=== PATIENT | female | born 1975 | race Caucasian/White ===

== ENCOUNTER 2022-12-27 17:40 | Emergency (ER) | payer OTHER, SELFPAY ==
--- NOTE | ~2022-12-27 | CT_ITS ---
EXAMINATION: CT HEAD WITHOUT CONTRAST CLINICAL INFORMATION: Headache. COMPARISON: None available. TECHNIQUE: Contiguous axial imaging was performed from the skull base to vertex without intravenous administration of contrast. This CT examination was performed using dose optimization techniques as appropriate, variously including the following: *Automated exposure control *Adjustment of mA and/or kV according to patient size (this includes techniques or standardized protocols for targeted exams where dose is matched to indication/reason for exam; i.e. extremities or head) *Use of iterative reconstruction technique DLP: 711. mGy-cm FINDINGS: The lateral, third and fourth ventricles are normally outlined. The cortical sulci and basal cisterns are normally outlined as well. There is no acute territorial defect, hemorrhage or midline shift. The extra-axial spaces are unremarkable. Calvarium: Intact. Maxillofacial sinuses and mastoids: There is a lobular inferior right maxillary sinus opacity measuring 2 cm likely a cyst or polyp. The remaining visualized maxillofacial sinuses and mastoids are clear. CT/CT head/brain wo IV con IMPRESSION: No acute intracranial pathology.
[2022-12-27 18:19] VITALS: BP 144/86; PULSE 76; RESP 18; TEMP 36.6; O2SAT 97; BMI 31.5
[2022-12-27 18:39] LABS: MANUAL DIFF FLAG NO
[2022-12-27 18:46] LABS: Basophils Percent Auto 0.3 % (0-2); Eosinophils Absolute Auto 0.2 X10*3/uL (0.0-0.4); Eosinophils Percent Auto 1.8 % (0-4); Hematocrit 40.5 % (37.0-47.0); Hemoglobin 12.9 g/dl (12.0-16.0); Imm Gran Abs Auto 0.03 X10*3/uL (0.00-0.03); Imm Gran Pct Auto 0.3 % (0.0-0.4); Lymphocytes Absolute Auto 3.2 X10*3/uL (1.2-4.9); Lymphocytes Percent Auto 37.2 % (20-40); Mean Corpuscular HGB Conc 31.9 g/dl (31.0-35.0); Mean Corpuscular Hemoglobin 28.1 pg (27.0-33.0); Mean Corpuscular Volume 88.2 fL (80.0-98.0); Mean Platelet Volume 9.2 fL (9.4-12.3); Monocytes Absolute Auto 0.6 X10*3/uL (0.1-1.2); Monocytes Percent Auto 7.1 % (2-11); Neutrophils Absolute Auto 4.6 x10*3/uL (2.0-8.3); Neutrophils Percent Auto 53.3 % (45-73); Platelet Count 274 X10*3/uL (160-400); Red Blood Count 4.59 X10*6/uL (4.20-5.50); White Blood Count 8.7 X10*3/uL (4.8-10.8)
[2022-12-27 18:56] LABS: COVID-19 Test Negative (Negative); IDNOW Serial# 55D5AD1C; IDNOW Serial# 9DB6401D; Influenza A Negative (Negative); Influenza B2 Negative (Negative)
--- NOTE | 2022-12-27 18:58 | ED.GENADULT ---
HPI - General Adult General Chief complaint: General Medical Stated complaint: High blood pressure/Migraine Time Seen by Provider: 12/27/22 22:01 Source: patient Mode of arrival: ambulatory Limitations: no limitations History of Present Illness HPI narrative: 47 yo female PMH of depression and headaches but no formal dx of migraines - usually triggered by a smell notes 1 week she developed gradual onset R sided stabbing headache that has worsened but then did improve for a couple of days until it worsened again today. No fevers, no trauma, no neck manipulation, sinus issues. She has never had one last this long before. No medications at home for headaches daily. No prior imaging. MD complaint: headache Onset (ago): week(s) (1) Location: head Radiation: non-radiation Severity: severe Quality: stabbing Pain Consistency: constant Relieving factors: none Exacerbating factors: other (light noise) Associated symptoms: headaches and nausea/vomiting Treatments prior to arrival: none Related Data Allergies Allergy/AdvReac Type Severity Reaction Status Date / Time amoxicillin Allergy Rash Verified 12/27/22 18:18 clavulanic acid Allergy Rash Verified 12/27/22 18:18 [From Augmentin] morphine Allergy Agitated Verified 12/27/22 18:18 Review of Systems Review of Systems: Constitutional : No Fever, No Chills, No Fatigue ENT/Mouth : No sore throat, No Rhinorrhea Eyes: pos Eye Pain, No Swelling, No Redness Cardiovascular : No Chest Pain, No SOB, No Dyspnea on Exertion Respiratory : No Cough, No Sputum Gastrointestinal : pos Nausea, No Vomiting, No Diarrhea, No abdominal Pain Genitourinary : No Dysuria, No Urinary Frequency, No Hematuria, Musculoskeletal : No joint pain, No Myalgias, No Joint Swelling Skin : No Skin Lesions, No rash Neuro : No Weakness, No Numbness, No Dizziness, positive Headache Psych : No Anxiety/Panic, No Depression Heme/Lymph: No Bruising, No Bleeding,No Lymphadenopathy Endocrine : No Polyuria, No Polydipsia All other systems reviewed and are negative [facility] Past Medical History Attestation statement: The following information was validated with the patient. Medical History Depression Social History Social History (Updated 12/27/22 @ 22:21 by Tina Nazario DO) Patient Tobacco Use Status: Never used Tobacco Advance Directives: No Advance Directives Information Provided: Yes Physical Exam ED Vital Signs: Vital Signs - 24 hr 12/27/22 18:19 12/27/22 22:01 Temperature 97.9 F 97.9 F Pulse Rate 76 62 Respiratory Rate 18 18 Blood Pressure 144/86 H 155/75 H Pulse Oximetry 97 100 Oxygen Delivery Method Room Air Room Air BMI result Body Mass Index 31.5 Appearance: Alert. Oriented X3. No acute distress. Eyes: Pupils equal, round and reactive to light. photophobia ENT: Pharynx normal. Neck: Normal inspection. Neck supple. no meningeal signs CVS: Normal heart rate and rhythm. Pulses normal. Respiratory: No respiratory distress. Breath sounds normal. Abdomen: Soft and nontender. Skin: Skin warm and dry. Normal skin color. Normal skin turgor. Extremities: No lower extremity edema. No calf ttp Neuro: Oriented X 3. No motor deficit. No sensory deficit. Course Course Course Narrative: feels much better can be DC at this time Medications Administered Generic Name Dose Route Start Last Admin Trade Name Fredebbi PRN Reason Stop Dose Admin Magnesium Sulfate 2 gm in 50 mls @ 25 mls/hr 12/27/22 22:09 12/27/22 22:34 Magnesium Sulfate/H2o IV 12/28/22 00:08 25 mls/hr ONCE ONE Administration Discontinued Medications Generic Name Dose Route Start Last Admin Trade Name Freq PRN Reason Stop Dose Admin Dexamethasone Sodium Phosphate 6 mg 12/27/22 22:09 12/27/22 22:26 Dexamethasone Sod Phosphate 4 Mg/Ml Vial IVPUSH 12/27/22 22:10 6 mg ONCE ONE Administration Diphenhydramine HCl 25 mg 12/27/22 22:09 12/27/22 22:25 Diphenhydramine Hcl 50 Mg/Ml Vial IVPUSH 12/27/22 22:10 25 mg ONCE ONE Administration Sodium Chloride 1,000 mls @ 999 mls/hr 12/27/22 22:15 12/27/22 22:34 Ns IV 12/27/22 23:15 999 mls/hr .Q1H1M EDI Administration Ketorolac Tromethamine 15 mg 12/27/22 22:09 12/27/22 22:27 Ketorolac Tromethamine 15 Mg/Ml Vial IVPUSH 12/27/22 22:10 15 mg ONCE ONE Administration Metoclopramide HCl 10 mg 12/27/22 22:09 12/27/22 22:26 Metoclopramide Hcl 10 Mg/2 Ml Vial IVPUSH 12/27/22 22:10 10 mg ONCE ONE Administration Medical Decision Making Medical Decision Making [facility] Narrative: 47 yo female with PMH of depression here with c/o gradual onset headache that has worsened then improved now worsened again no fevers, normal neuro exam, no meningeal signs. She has no formal dx of migraines. Given onset unlikely to be SAH at this time I am going to obtain basic labs, CT head for mass, start on IV magnesium/dexa given 1 week of symptoms and migraine cocktail. Her lack of fevers and meningeal signs make [employer] Infection unlikely and onset and timing make SAH unlikely. ESR added in case of GCA arteritis. Differential Diagnosis Differential Diagnoses: The differential diagnosis associated with the presentation includes tension, migraine, mass, acute headache, sinusitis Admission/Observation Consideration of admission/observation: Escalation of care including admission/observation considered headache improved stable for DC Lab Data [facility] Lab Attestation statement: I reviewed the patient's lab results. 12/27/22 18:34 12/27/22 18:34 Labs: Lab Results 12/27/22 Range/Units 18:34 WBC 8.7 (4.8-10.8) X10*3/uL RBC 4.59 (4.20-5.50) X10*6/uL Hgb 12.9 (12.0-16.0) g/dl Hct 40.5 (37.0-47.0) % MCV 88.2 (80.0-98.0) fL MCH 28.1 (27.0-33.0) pg MCHC 31.9 (31.0-35.0) g/dl RDW 13.0 (11.0-16.0) % Plt Count 274 (160-400) X10*3/uL MPV 9.2 L (9.4-12.3) fL Immature Gran % (Auto) 0.3 (0.0-0.4) % Neut % (Auto) 53.3 (45-73) % Lymph % (Auto) 37.2 (20-40) % Barnwell % (Auto) 7.1 (2-11) % Eos % (Auto) 1.8 (0-4) % Baso % (Auto) 0.3 (0-2) % Lymph # (Auto) 3.2 (1.2-4.9) X10*3/uL Barnwell # (Auto) 0.6 (0.1-1.2) X10*3/uL Eos # (Auto) 0.2 (0.0-0.4) X10*3/uL Baso # (Auto) 0.0 (0.0-0.2) X10*3/uL Abs Immat Gran (auto) 0.03 (0.00-0.03) X10*3/uL Absolute Neuts (auto) 4.6 (2.0-8.3) x10*3/uL Absolute Nucleated RBC 0.000 (0.0-0.012) X10*3/uL Nucleated RBC % (auto) 0.0 (0.0-0.2) /100WBC ESR 5 (0-20) MM/HR Sodium 141 (135-145) mmol/L Potassium 3.8 (3.3-5.1) mmol/L Chloride 108 (96-108) mmol/L Carbon Dioxide 25 (22-29) mmol/L Anion Gap 12 (12-20) BUN 11 (9-16) mg/dL Creatinine 0.99 (0.5-1.4) mg/dL Estim Creat Clear Calc 80.5 Estimated GFR 60 Random Glucose 93 (60-115) mg/dL Calcium 9.0 (8.4-10.2) mg/dL Total Bilirubin 0.2 (0.0-1.0) mg/dL AST 17 (5-31) U/L ALT 17 (0-31) U/L Alkaline Phosphatase 93 (39-117) U/L Total Protein 6.8 (6.5-8.0) g/dL Albumin 4.0 (3.5-5.0) g/dL Lipase 40 (8-78) U/L Beta HCG, Quant < 2 mIU/mL COVID-19 (EVANGELISTA) Negative (Negative) COVID-19 Clin Com See Note Influenza Type A (CLOTILDE) Negative (Negative) Influenza Type B (CLOTILDE) Negative (Negative) Influenza A & B Note See Note Independent Interpretation I performed an independent interpretation of an: CT Scan (no ICH) Radiology Impression Discussion of test interpretation with radiology: I have reviewed the radiologist's reading. Independent Historian Clinical information obtained from an independent historian. History obtained from or confirmed by: Spouse Discharge Plan Discharge Clinical Impression: Acute headache Qualifiers: Headache type: unspecified Intractability: not intractable Qualified Code(s): R51.9 - Headache, unspecified Patient Disposition: Home, Self-Care Instructions: Acute Headache (ED) Additional Instructions: return for worsening symptoms, pain, fevers, vomiting, vision changes, numbness, weakness, or any other concerns. talk to your doctor about your headaches please as soon as possible
[2022-12-27 19:03] LABS: Alanine Aminotransferase 17 U/L (0-31); Alkaline Phosphatase 93 U/L (39-117); Anion Gap 12 (12-20); Aspartate Amino Transferase 17 U/L (5-31); Bilirubin Total 0.2 mg/dL (0.0-1.0); Blood Urea Nitrogen 11 mg/dL (9-16); Carbon Dioxide 25 mmol/L (22-29); Chloride 108 mmol/L (96-108); Creatinine Clr Calc Pharmacy 80.5; Estimated Glomerular Filt Rate 60; Glucose Random 93 mg/dL (60-115); Lipase 40 U/L (8-78); Potassium 3.8 mmol/L (3.3-5.1); Sodium 141 mmol/L (135-145); Total Protein 6.8 g/dL (6.5-8.0)
[2022-12-27 19:05] LABS: HCG Quantitative < 2 mIU/mL
[2022-12-27 22:01] VITALS: BP 155/75; PULSE 62; RESP 18; TEMP 36.6; O2SAT 100
[2022-12-27] MEDS: diphenhydrAMINE HCL 50 MG/ML VIAL 25 MG IVPUSH (22:25)
[2022-12-27] MEDS: dexAMETHasone sod phosphate 4 MG/ML VIAL 6 MG IVPUSH (22:26)
[2022-12-27] MEDS: Metoclopramide HCl 10 MG/2 ML VIAL IVPUSH (22:26)
[2022-12-27] MEDS: Ketorolac Tromethamine 15 MG/ML VIAL IVPUSH (22:27)
[2022-12-27] MEDS: 0.9 % Sodium Chloride 1,000 ML 999 ML IV (22:34)
[2022-12-27] MEDS: Magnesium Sulfate/H2O 2 GM/50 ML PIGGYBACK IV (22:34)
[2022-12-27 22:55] LABS: Erythrocyte Sedimentation Rate 5 MM/HR (0-20)
== END 2022-12-28 00:40 | disposition home or self-care (01) ==
PROVIDERS: Nurse Practitioner Family; Emergency Provider Emergency Medicine
DX: R51.9 Headache, unspecified (principal); Z11.52 Encounter for screening for COVID-19
CPT/HCPCS: 36415; 70450; 80053; 83690; 84702; 85025; 85652; 87502; 87635; 96365; 96366; 96375; 99284; J1100; J1200; J1885; J2765; J3475

== ENCOUNTER 2025-01-18 09:31 | Outpatient (REF) | payer MEDICAID, SELFPAY ==
--- OUTSIDE RECORDS SUMMARY | 2025-01-18 09:35 | XMS_ITS | Data Portability ---
Author Organization [place] - [facility], Allergy Address [address] [address] Care Team Providers Care Transportation Planning Engineer Name Role Phone EL TERRY Primary Care Provider Assessment Encounter Date Assessment Date Assessment LastModified by Organization Details LastModified Time 01/09/2024 01/09/2024 48 yo F with a history of migraines presents for evaluation of sinus cyst. Initially diagnosed when had migraine for [address] days and had a CT scan. Had improvement with migraine cocktail. Nasal endoscopy does not reveal any polyps. I received the report of her CT head showing lobular inferior right maxillary sinus opacity measuring 2 cm likely a cyst or polyp with the remaining visualized maxillofacial sinuses and mastoids were clear. This was from December 2022. I did not have the images to review. We discussed that sinus cysts are very common findings and usually do not require any intervention. They can be seen with allergies. She is having some sinus congestion and allergy symptoms, so I did recommend adding azelastine to her current regimen. She may follow-up as needed. [email or web address] Not available 01/13/2024 17:01:49 Plan of Treatment Reminders Order Date Submit Date Provider Last Modified By Organization Details Last Modified Time Details Appointments None recorded. Lab None recorded. Referral None recorded. Procedures None recorded. Surgeries None recorded. Imaging None recorded. Medication Orders azelastine 137 mcg (0.1 %) nasal spray 2023 024 [facility][id number], [address] [facility], [place], [address], 13:37:14 Patient TargetsNo targets recorded. Patient InstructionsNo instructions recorded. Reason for Referral None Reported. Results Created Date Observation Date Name Description Value Unit Range Abnormal Flag Note LastModifiedBy Organization Detail LastModifiedTime 01/09/20 24 12/27/2022 CT, head + brain , w/o contr ast No observ ation record ed. [facility] [address], [place], [address], 01/16/2024 12:40:05 01/30/20 24 12/27/2022 CT, head, w/o contr ast No observ ation record ed. [email or web address] Not Available 01/20 09:39:27 Result Notes None recorded. Problems Name Problem SNOMED Code Status Onset Date Resolution Date Notes Provider Name and Address Organization Details Recorded Time Allergic rhinitis 79009293 Active 024 IZABELLA MONIQUE MD [address], [place], [address] , [place] - [facility] 4 13:35:35 Migraine without aura 81302210 Active 024 IZABELLA MONIQUE MD [address], [place], [address] , [facility] - [facility] 4 16:59:25 Cyst of nasal sinus 53767790 Active 024 IZABELLA MONIQUE MD [address], [place], [address] , [place] - [facility] 4 16:59:32 Problem Notes None recorded. Procedures Surgical History Date Name Laterality Status Provider Name and Address Organization Details Recorded Time 4 JMSNasal/Sinus Endoscopy completed IZABELLA MONIQUE MD [address], [place], [address], [facility] - [facility] 01/09/2024 13:38:26 3 Removal of tonsils completed Ashia Stovall [place] - [facility] 01/09/2024 13:10:26 Imaging Results None recorded. Procedure Notes None recorded. Medical Equipment None Reported. Allergies Allergen ID Allergen Name Allergen Category Reaction Reaction Severity Criticality Documentation Date Start Date Code Code System Note Provider Name and Address Organization Details Recorded Time 459139 amoxicill in medicatio n Not available Not available Not available 01/09/2024 723 RxNorm Ashia last [place] - [facility] 4 13:09:41 [id number] Augmentin medicatio n Not available Not available Not available 01/09/2024 43860 2 RxNorm Ashia last [place] [facility] 4 13:09:48 Medications Name Sig Start Date Stop Date Status Note LastModified by Organization Details LastModified Time benzonatate 200 mg capsule TAKE 1 CAPSULE BY MOUTH THREE TIMES A DAY FOR 5 DAYS 01/08 completed Not Available Not Available Not Available fluoxetine 20 mg tablet TAKE 2 TABLETS BY MOUTH EVERY DAY FOR 90 DAYS active Not Available Not Available No t Available prednisone 50 mg tablet TAKE 1 TABLET BY MOUTH EVERY DAY FOR 5 DAYS 01/08 completed Not Available Not Available Not Available azelastine 137 mcg (0.1 %) nasal spray Burwell 2 sprays twice a day by intranasa l route for 30 days. active Not Available Not Available No t Available Ventolin HFA 90 mcg/actuati on aerosol inhaler INHALE 1 PUFF BY MOUTH 4 TIMES A DAY NEEDED FOR WHEEZING 01/08 completed Not Available Not Available Not Available Symbicort 80 mcg-4.5 mcg/actuati on HFA aerosol inhaler INHALE 2 PUFFS BY MOUTH EVERY 12 HOURS 01/08 completed Not Available Not Available Not Available Paxlovid 300 mg (150 mg x 2)-100 mg tablets in a dose pack TAKE 3 TABLETS BY MOUTH TWICE DAILY FOR 5 DAYS DIRECTED NORMAL RENAL FUNCTION 01/08 completed Not Available Not Available Not Available Vitals Date Recorded Body height Body mass index (BMI) Body weight Provider Name and Address Organization Details Last Updated DateTime 01/09/2024 170.18 cm 32.1 kg/m2 41120.44 brant Stovall [place] [facility] 01/09/2024 13:12:44 Social History None recorded. Functional Status None recorded. Mental Status None recorded. Family History Nothing Reported. Medical History Condition Response Anemia Y Migraines Y Anxiety Y Depression Y Asthma Y Kidney Disease Y Gynecological HistoryNo gynecological history recorded. Obstetrics History GPAL:G 0 P 0 0 0 0 Past Encounters Encounter ID Performer Location Encounter Start Date Encounter Closed Date Diagnosis/Indication Diagnosis SNOMED-CT Code Diagnosis ICD10 Code Diagnosis IMO Codes Diagnosis Note [id number] IZABELLA MONIQUE MD [facility] on [address] [place] [address] 01/09/2024 12:54:16 01/09/2024 16:36:39 Allergic rhinitis 25653019 J30.9 Migraine without aura 56 355156 G43.009 Cyst of nasal sinus 8522 5000 J34.1 Health Concerns Section Related Observation LastModified by Organization Detai ls LastModified Time None Recorded Concern Status LastModified by Organization Details LastModified Time None Recorded Advance Directives Directive None Recorded Payers Insurance Date Sequence Insurance Name Policy Number Policy Bella Covered Member ID Bella Member ID Guarantor Name 01/09/2024 1 [facility]ICA[facility]) Imani Arechiga [id number] Imani Arechiga 01/15/2024 1 [facility] (HMO) [id number] Imani Arechiga [id number] Imani Arechiga Notes Date Note Type Note Provider Name and Address Organization Details Recorded Time 01/09/2024 text/html ROS as noted in the HPI 48 yo F presents for evaluation of sinus cyst. Initially diagnosed when had migraine for 4 days, had a CT scan, gave migraine cocktailTakes excedrin or sumatriptan, diet can be trigger Trouble with allergies, post nasal drip, some hoarsenessworse since covidTakes loratadineNasonex off and on, usually when nasal dripNo recent formal allergy testing. Multiple sensitivities. No IT. Gets sinus infections 3 times a year. IZABELLA MONIQUE MD [address] [place] [address], [place], [address], [facility] - [facility] 01/13/2024 17:02:19 OBGyn Episode No OBEpisode recorded.
--- OUTSIDE RECORDS SUMMARY | 2025-01-18 09:35 | XMS_ITS | Clinical Summary ---
Author Organization [address] [facility] Address [address] [place] [address] Phone Care Team Providers Care Physical Integration Practitioner Name Role Phone Dmitriy Adams MD Primary Care Provider Allergies Active Allergy Reactions Criticality Noted Date Comments Adhesive Rash Medium 03/12/2024 Tape/COBAN Amoxicillin High 12/06/2022 Rash, vomiting Amoxicillin-Pot Clavulanate High 12/07/19 Rash, Vomiting Morphine High 12/06/2022 Extreme itching itch til I bleed Medications FLUoxetine (PROzac) 20 mg tablet Take 1 tablet (20 mg total) by mouth 1 (one) time each day. Active azelastine (ASTELIN) 137 mcg (0.1 %) nasal spray 2 sprays 1 (one) time each day if needed. Active Ventolin HFA 90 mcg/actuation inhaler 2 puffs every 4 (four) hours if needed. 05/12/2023 Active B complex-vitamin C-vitamin E-zinc tablet Take 1 tablet by mouth 1 (one) time each day. Active amLODIPine (NORVASC) 10 mg tablet Take 1 tablet (10 mg total) by mouth 1 (one) time each day. Active Active Problems Problem Noted Date Diagnosed Date Surgery follow-up 08/27/2024 Paresthesias in right hand 04/01/2024 Carpal tunnel syndrome of right wrist 03/14/2024 Cubital tunnel syndrome, right 03/14/2024 Chronic recurrent major depressive disorder ([facility] /[facility] V24) 03/13/2024 Mild obesity 03/13/2024 Migraine without aura 01/13/2024 Allergic rhinitis 01/09/2024 Encounters Date Type Department Care Team Description 12/03/2024 9:30 AM EDT Office Visit Orthopedic Surgery - [place] [address] [place] [address] Jaclyn Schwartz MD Carpal tunnel syndrome of right wrist (Primary Dx); Cubital tunnel syndrome, right from Last 3 Months Surgical History Surgery Date Site/Laterality Comments BUNIONECTOMY Right PROCEDURE: BUNION SURGERY, SIMPLE REMOVAL OTHER SURGICAL HISTORY Right PROCEDURE: NM PARTICAL EXCISION BONE PHALANX TOE OTHER SURGICAL HISTORY PROCEDURE: CLASS TONSILLECTOMY PROCEDURE: HISTORICAL TONSILLECTOMY ULNAR NERVE TRANSPOSITION 02/20/2017 - 02/19/2018 Right CARPAL TUNNEL RELEASE 02/21/2012 - 02/19/2013 Right also had ganglion cysts removed CARPAL TUNNEL RELEASE 05/02/2024 Right ULNAR NERVE TRANSPOSITION 05/02/2024 Right Medical History Medical History Date Comments Asthma cold infused ast hma Anxiety Depression Neuromuscular disorder ([facility] V24, [facility] V28 ) Arthritis Social History Tobacco Use Types Packs/Day Years Used Date Smoking Tobacco: Former Cigarettes 0 Q uit: 02/21/2012 Smokeless Tobacco: Never Alcohol Use Standard Drinks/Week Comments Yes 2 (1 standard drink = 0.6 oz pur e alcohol) RARELY Interpersonal Safety Answer Date Record ed Physical Abuse Unrecognized value 05/02/2024 Verbal Abuse Unrecognized value 05/02/2024 Comments No Sex and Gender Information Value Date Recorded Sex Assigned at Female 03/08/2024 11:17 AM EST Legal Sex Female 8:38 PM EST Gender Identity Female 03/08/2024 11:17 AM EST Sexual Orientation Straight 03/08/2024 11 :17 AM EST Obstetrics History Last Filed Vital Signs Vital Sign Reading Time Taken Comments Blood Pressure 131/88 05/02/2024 1:07 PM EDT Pulse 80 05/02/2024 1:07 PM EDT Temperature 36.5 C (97.7 F) 05/02/2024 1:07 PM EDT Respiratory Rate 14 05/02/2024 1:07 PM EDT Oxygen Saturation 95% 05/02/2024 1:07 PM EDT Inhaled Oxygen Concentration - - Weight 95.3 kg (210 lb) 12/03/2024 9:36 AM EDT Height 170.2 cm (5' 7 ) 12/03/2024 9:36 AM EDT Body Mass Index 32.89 12/03/2024 9:36 AM EDT Plan of Treatment Health Maintenance Due Date Last Done Comments Breast Cancer Screening 1974 Colorectal Cancer Screening: Colonoscopy 1974 Hepatitis B Vaccines (1 of 3 - 19+ 3-dose series) 1993 Cervical Cancer Screening: P ap Smear 10/01/1995 Cholesterol Screening (Lipid Panel) 03/17/2023 HIV Screening 03/17/2023 Hepatitis C Screening 03/17/2023 Social Influencers of Health Screening 03/17/2023 Depression Screening 02/21/2024 DTaP,Tdap,and Td Vaccines (2 - Tdap) 07/01/2024 07/01/2014 Pneumococcal Vaccine: 50+ Ye ars (1 of 1 - PCV) 2024 Zoster Vaccines (1 of 2) 2024 COVID-19 Vaccine (1 - 2024-2 6 season) 2024 Influenza Vaccine (#1) 2024 11/28/2014 RSV Immunization Adult Patie nts (1 - 1-dose 75+ series) 2049 HIB Vaccines Aged Out No longer eligi ble based on patient's age to complete this topic HPV Vaccines Aged Out No longer eligi ble based on patient's age to complete this topic Hepatitis A Vaccines Aged Out No long er eligible based on patient's age to complete this topic IPV Vaccines Aged Out No longer eligi ble based on patient's age to complete this topic MMR Vaccines Aged Out No longer eligi ble based on patient's age to complete this topic Meningococcal ACWY Vaccine Aged Out N o longer eligible based on patient's age to complete this topic Meningococcal B Vaccine Aged Out No l onger eligible based on patient's age to complete this topic RSV Immunization Patients Un genna 20 months Aged Out No longer eligible b ased on patient's age to complete this topic Varicella Vaccines Aged Out No longer eligible based on patient's age to complete this topic Goals Goal Patient Goal Type Associated Problems Recent Progress Patient-Stated? Author Pt goal General Yes Juan Strong, OT Note: To get as much mobility without pain as I can get STG 6-8 visits General On track( 025 10:13 AM EDT) No Juan Strong, OT Note: Patient will report <=8/10 pain in R elbow with activity, - met Patient will report <=4/10 pain in R wrist with activity, - met Patient will demo R sh AROM improved by 10* for increased ease of donning a shirt - met Patient will demo R elbow AROM improved by 5-10* to be able to slide arm into jacket/sweater with increased ease, - not met Patient will demo R wrist AROM improved by 10* to be able to hold a plastic cup - progressing toward goal Pt will demo R digit flexion within 2 CM of DPC to be able to hold a cup, - met Patient will demo improved functional use of R upper extremity as evidenced by Quick Dash score <= 90 to be able to wipe the counter - met Patient will perform initial HEP MOD I - met 06/04/24 Patient will report <=7/10 pain in R elbow with activity, - Met Patient will report <=3/10 pain in R wrist with activity, - Progressing toward goal Patient will demo R sh AROM improved by 10* for increased ease of showering - Met Patient will demo R elbow AROM improved by 5-10* to be able to slide arm into jacket/sweater with increased ease, - Met Patient will demo R wrist AROM improved by 10* to be able to hold a plastic cup - Progressing toward gaol Pt will demo R digit flexion able to touch palm - Met Patient will demo improved functional use of R upper extremity as evidenced by Quick Dash score <= 80 to be able to put silverware in drawer - progressing toward goal Patient will perform upgraded HEP MOD I - Met 06/25/24 Patient will report <=4/10 pain in R elbow with activity, - Met Patient will report <=3/10 pain in R wrist with activity,- Met Patient will demo R sh flex AROM >= 145 to be able to reach items in low cabinet- Met Patient will demo R elbow AROM improved by 5-10* to be able to reach to side pocket - Met Patient will demo R wrist AROM improved by 10* to be able to hold a plastic cup -Met Patient will demo improved functional use of R upper extremity as evidenced by Quick Dash score <= 80 to be able to put silverware in drawer Patient will perform upgraded HEP, as it progresses MOD I 07/16/24 Patient will report <=4/10 pain in R elbow with activity, - Met Patient will report <=3/10 pain in R wrist with activity, - Met Patient will demo R sh flex AROM >= 145 to be able to reach items in low cabinet- Met Patient will demo R elbow AROM improved by 5-10* to be able to reach to side pocket - met Patient will demo R wrist AROM improved by 10* to be able to hold a plastic cup - met Patient will demo improved functional use of R upper extremity as evidenced by Quick Dash score <= 80 to be able to put silverware in drawer - Met Patient will perform upgraded HEP, as it progresses MOD I - Met 08/27/24 Patient will report <=2/10 pain in R elbow with activity, Patient will report no pain in R wrist with activity consistently Patient will demo R supination >= 65* to be able to turn a door knob with R hand Patient will demo R elbow strength 4+/5 to be able to perform work tasks Patient will demo R wrist AROM improved by 10* to be able to hold a plastic cup Patient will demo improved functional use of R upper extremity as evidenced by Quick Dash score <= 50 to be able type on a computer Patient will perform upgraded HEP, as it progresses MOD I LTG 28 visits General On track( 025 4:26 PM EDT) Juan Huntley, OT Note: Patient will report <=1/10 pain in R elbow with activity, Patient will report no pain in R wrist with activity consistently Patient will demo R UE AROM WFL for basic Adls such as dressing/toiletting, Patient will demo R UE strength WFL for light home mgmnt such as washing dishes, Patient will demo improved functional use of R upper extremity as evidenced by Quick Dash score <= 35 to be able to perform light home mgmnt tasks such as cleaning, and Patient will perform HEP MOD I Insurance [facility] Advance Directives Documents on File Type Date Recorded 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 Do not modify or discontinue any currently active code status orders. Care Teams Physical Integration Practitioner Relationship Specialty Start Date End Date Dmitriy Adams MD [address] [place] [id number] PCP - General Internal Medicine 05/09/24
[2025-01-18 09:55] LABS: MANUAL DIFF FLAG NO
[2025-01-18 10:32] LABS: Hematocrit 42.8 % (37.0-47.0); Hemoglobin 13.6 g/dl (12.0-16.0); Imm Gran Abs Auto 0.02 X10*3/uL (0.00-0.03); Imm Gran Pct Auto 0.2 % (0.0-0.4); Lymphocytes Absolute Auto 2.6 X10*3/uL (1.2-4.9); Mean Corpuscular HGB Conc 31.8 g/dl (31.0-35.0); Mean Corpuscular Hemoglobin 27.3 pg (27.0-33.0); Mean Corpuscular Volume 85.8 fL (80.0-98.0); NRBC Abs Auto 0.000 X10*3/uL (0.0-0.012); NRBC Pct Auto 0.0 /100WBC (0.0-0.2); Platelet Count 292 X10*3/uL (160-400); Red Blood Count 4.99 X10*6/uL (4.20-5.50); White Blood Count 9.4 X10*3/uL (4.8-10.8)
[2025-01-18 10:55] LABS: Alanine Aminotransferase 26 U/L (0-31); Albumin Level 4.5 g/dL (3.5-5.0); Alkaline Phosphatase 96 U/L (39-117); Anion Gap 13 (12-20); Aspartate Amino Transferase 20 U/L (5-31); Blood Urea Nitrogen 9 mg/dL (9-16); Calcium 10.3 mg/dL (8.4-10.2); Carbon Dioxide 26 mmol/L (22-29); Chloride 108 mmol/L (96-108); Cholesterol 202 mg/dL (<200); Estimated Glomerular Filt Rate 57; HDL Cholesterol 38 mg/dL (>40); Potassium 4.0 mmol/L (3.3-5.1); Sodium 143 mmol/L (135-145); Total Protein 6.9 g/dL (6.5-8.0); Triglycerides 126 mg/dL (<150)
== END 2025-01-18 09:32 | disposition home or self-care (01) ==
LOC: HO.LAB 09:31
PROVIDERS: PCP Internal Medicine; Visit Provider Internal Medicine
DX: Z00.00 Encounter for general adult medical examination without abnormal findings (principal); E66.811 Obesity, class 1; F32.89 Other specified depressive episodes; I10 Essential (primary) hypertension; R73.01 Impaired fasting glucose
CPT/HCPCS: 36415; 80053; 80061; 83036; 85025

== ENCOUNTER 2025-01-24 08:45 | Outpatient (REF) | payer MEDICAID, SELFPAY ==
[2025-01-27 08:13] LABS: TS Negative Control Passed; TS Panel A 2; TS Panel B 0; TS Positive Control Passed; TSpotTB Negative (Negative)
== END 2025-01-24 08:46 | disposition home or self-care (01) ==
LOC: HO.LAB 08:45
PROVIDERS: PCP Internal Medicine; Visit Provider Internal Medicine
DX: I10 Essential (primary) hypertension (principal); F32.4 Major depressive disorder, single episode, in partial remission; E66.811 Obesity, class 1; R73.01 Impaired fasting glucose; Z11.1 Encounter for screening for respiratory tuberculosis
CPT/HCPCS: 36415; 86481